=== PATIENT | male | born 1945 | race Caucasian/White ===

== ENCOUNTER → 2022-01-19 13:36 | Outpatient (BNVA) | payer MEDICARE, OTHER, SELFPAY | PROVIDERS: PCP Internal Medicine; Visit Provider Nurse Practitioner Family | DX: G47.33 Obstructive sleep apnea (adult) (pediatric) (principal); G47.31 Primary central sleep apnea; G47.61 Periodic limb movement disorder | CPT/HCPCS: 99212 ==

== ENCOUNTER → 2022-07-20 08:56 | Outpatient (BNVA) | payer MEDICARE, OTHER, SELFPAY | PROVIDERS: PCP Internal Medicine; Visit Provider Nurse Practitioner Family | DX: R51.9 Headache, unspecified (principal); R44.0 Auditory hallucinations; F09 Unspecified mental disorder due to known physiological condition; G25.81 Restless legs syndrome | CPT/HCPCS: 99212 ==

== ENCOUNTER → 2022-09-27 08:45 | Outpatient (BNVA) | payer MEDICARE, OTHER, SELFPAY | PROVIDERS: PCP Internal Medicine; Visit Provider Nurse Practitioner Family | DX: G47.33 Obstructive sleep apnea (adult) (pediatric) (principal); G47.31 Primary central sleep apnea; G47.61 Periodic limb movement disorder; G25.81 Restless legs syndrome; R51.9 Headache, unspecified; I10 Essential (primary) hypertension; F41.8 Other specified anxiety disorders; Z99.89 Dependence on other enabling machines and devices | CPT/HCPCS: 99212 ==

== ENCOUNTER → 2023-04-01 08:57 | Outpatient (BNVA) | payer MEDICARE, OTHER, SELFPAY | PROVIDERS: PCP Internal Medicine; Visit Provider Nurse Practitioner Family | DX: G47.33 Obstructive sleep apnea (adult) (pediatric) (principal); G47.31 Primary central sleep apnea; G47.61 Periodic limb movement disorder; G25.81 Restless legs syndrome; R51.9 Headache, unspecified | CPT/HCPCS: 99212 ==

== ENCOUNTER 2023-12-20 09:46 | Outpatient (AMB) | payer MEDICARE, OTHER, SELFPAY ==
[2023-12-20 10:35] VITALS: BP 136/76; PULSE 46; O2SAT 97; BMI 35.3
--- NOTE | 2023-12-20 10:35 | MHC.OFFVIS ---
Intake Vital Signs 12/20/23 10:35 Height 5 ft 5 in Weight 212 lb BMI 35.3 BP 136/76 Blood Pressure Location Rt brachial Position Sitting Pulse 46 L Pulse Source Pulse Oximeter Pulse Oximetry (%) 97 Oxygen Delivery Method Room Air Intake Visit Reasons: f/u appt-CONF Intake Note: Patient presents for follow up. no issues no cocncerns Allergies No Known Allergies Allergy (Verified 12/20/23 10:37) Medication List - Last Reconciled 12/20/23 by COSTA Bauer acetaminophen ER (Tylenol Arthritis Pain) 1,300 mg PO Q12H PRN atorvastatin 20 mg PO DAILY gabapentin 300 mg PO BEDTIME 90 days gabapentin 100 mg PO DAILY 90 days levothyroxine 25 mcg PO DAILY lorazepam mg PO BID risperidone 1 mg PO QAM sertraline 100 mg PO DAILY trazodone mg PO .QHS PRN HPI HPI Comments History of Present Illness Details yr-old fe/male presents for follow-up visit. Pt denies any significant interval medical history changes. He is usually sleeping well with his CPAP. He typically sleeps 6-7 hrs per night. Goes to bed around 7:30pm- usually sleeps until 3-3:30am. Once he wakes up to void, he usually just starts his day. He is comfortable w/ this bedtime routine. The Gabapentin continues to be helpful for restlessness. Uses 100mg in the am and 300mg at bedtime. He states his headaches are better. The headache feels more like a pressure. Does use Tylenol and Naproxen prn for headache and general aches and pains. Compliance Report Usage 11/20/2023 - 12/19/2023: Usage days days (100%) >= 4 hours Average usage (days used) 6 hours 54 minutes AirSense 11 AutoSet Serial number [id number] Mode CPAP Set pressure 10 cmH2O, EPR level 2 Residual AHI: 1.5/hr PFSH Medical History Anxiety and depression HTN (hypertension) Surgical History H/O total knee replacement Social History Alcohol intake: never Patient Tobacco Use Status: Never used Tobacco Review of Systems Const All systems reviewed & are unremarkable except as noted in HPI and below Physical Exam Vital Signs: Last Vital Signs Pulse 46 L 12/20/23 10:35 BP 136/76 12/20/23 10:35 Pulse Ox 97 12/20/23 10:35 Oxygen Delivery Method Room Air 12/20/23 10:35 BMI result Body Mass Index 35.3 Const General: no acute distress Orientation/consciousness: patient oriented x3 HEENT Head: Yes normocephalic Resp Effort & Inspection: normal respiratory effort and able to speak in complete sentences Auscultation: clear to auscultation bilaterally Neuro General: patient oriented x3 Psych Mental Status: mental status grossly normal Speech and movement: Clear speech present Attitude: cooperative Results Reviewed Results Reviewed: PAP compliance report- see HPI Assessment & Plan Assessment & Plan (1) Obstructive sleep apnea: Code(s): G47.33 - Obstructive sleep apnea (adult) (pediatric) (2) Central sleep apnea: Code(s): G47.31 - Primary central sleep apnea (3) Periodic limb movements of sleep: Code(s): G47.61 - Periodic limb movement disorder (4) Restless leg syndrome: Code(s): G25.81 - Restless legs syndrome Plan Continue Gabapentin 100mg and 300mg qd, may take extra 100mg cap prn pain. Continue CPAP 10 cm H2O nightly greater than 4 hours, as pt has good clinical effect from use.? Clean machine and change CPAP machine and supplies routinely. Monitor headaches- pt declines trying acute headache specific tx at this time. Future considerations- For RLS/PLMS: Pregabalin, dopamine agonist. For headache- Mag and B2, gepant- as pt has mild CAD/HLD f/u in 6 months or sooner prn. Medications: Changed From gabapentin 100 mg PO DAILY 30 days 30 caps 6RF To gabapentin 100 mg PO DAILY 90 caps 1RF 90 days Coding Level of Care Code Est Pt Level 4 (10183) Diagnoses Obstructive sleep apnea G47.33 Central sleep apnea G47.31 Periodic limb movements of sleep G47.61 Restless leg syndrome G25.81
== END 2023-12-20 11:34 | disposition home or self-care (01) ==
PROVIDERS: PCP Internal Medicine; Visit Provider Nurse Practitioner Family
DX: G47.33 Obstructive sleep apnea (adult) (pediatric) (principal); G47.31 Primary central sleep apnea; G47.61 Periodic limb movement disorder; G25.81 Restless legs syndrome
CPT/HCPCS: 99214

== ENCOUNTER → 2023-12-20 09:46 | Outpatient (BNVA) | payer MEDICARE, OTHER, SELFPAY | PROVIDERS: PCP Internal Medicine; Visit Provider Nurse Practitioner Family | DX: G47.33 Obstructive sleep apnea (adult) (pediatric) (principal); G47.31 Primary central sleep apnea; G47.61 Periodic limb movement disorder; G25.81 Restless legs syndrome; Z99.89 Dependence on other enabling machines and devices; Z79.899 Other long term (current) drug therapy | CPT/HCPCS: 99212 ==

== ENCOUNTER 2024-11-12 08:44 | Outpatient (AMB) | payer MEDICARE, OTHER, SELFPAY ==
--- NOTE | 2024-11-12 08:49 | MHC.OFFVIS ---
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 Pt denies any significant interval medical history changes. However, pt woke up today, feeling very dizzy. He states it was a room spinning dizziness, and made him feel off-balanced. He took 2 tabs of OTC meclizine 12.5mg, which helped the dizziness but has caused him to now feel foggy. He has not had a bout of dizziness in a few years. He has been doing debrox for right ear wax occlusion. Denies ear pain, infection, fever. He is usually sleeping well with his CPAP. He typically sleeps 7 hrs per night. He has enough CPAP supplies, and is changing them regularly. He is using distilled water with his machine. The Gabapentin continues to be helpful for restlessness. Uses 100mg in the am and 300mg at bedtime. He states his pressure headaches are stable- not bothersome.. Does use Tylenol and Naproxen prn for headache and general aches and pains. Compliance Report Usage 08/08/2024 - 11/05/2024: Usage days 30/30 days (100%) >= 4 hours Average usage (days used) 7 hours 26 minutes AirSense 11 AutoSet Serial number [id number] Mode CPAP Set pressure 10 cmH2O, EPR level 2 Residual AHI: 2.9/hr PFSH Medical History Anxiety and depression HTN (hypertension) Surgical History H/O total knee replacement Social History Alcohol intake: never Patient Tobacco Use Status: Never used Tobacco Physical Exam Vital Signs: Last Vital Signs Pulse 58 11/12/24 08:53 BP 140/86 H 11/12/24 08:53 Pulse Ox 94 11/12/24 08:53 Oxygen Delivery Method Room Air 11/12/24 08:53 BMI result Body Mass Index 34.9 Const General: no acute distress Orientation/consciousness: patient oriented x3 HEENT Head: Yes normocephalic Resp Effort & Inspection: normal respiratory effort and able to speak in complete sentences Auscultation: clear to auscultation bilaterally Neuro Other: Gaze both nystagmus exam: Intact without nystagmus EOM intact No cervical lymphadenopathy, ear pain on palpation or ear tugging. Posterior oropharynx moist/intact without erythema or exudate. General: patient oriented x3 Psych Mental Status: mental status grossly normal Speech and movement: Clear speech present Attitude: cooperative Assessment & Plan Assessment & Plan (1) Obstructive sleep apnea: Code(s): G47.33 - Obstructive sleep apnea (adult) (pediatric) Category: Medical (2) Central sleep apnea: Code(s): G47.31 - Primary central sleep apnea Category: Medical (3) Periodic limb movements of sleep: Code(s): G47.61 - Periodic limb movement disorder Category: Medical (4) Restless leg syndrome: Code(s): G25.81 - Restless legs syndrome Category: Medical (5) Vertigo: Code(s): R42 - Dizziness and giddiness Category: Medical Plan For acute dizziness: Dizziness has resolved with meclizine 25 mg this morning. No current symptoms of URI or ear infection. May use OTC meclizine 12.5 mg p.r.n.- may be better tolerated than 25 mg that he took today. If dizziness persists or worsens, consider referral for vestibular PT. Continue Gabapentin 100mg and 300mg qd, may take extra 100mg cap prn pain. Continue CPAP 10 cm H2O with EPR to nightly greater than 4 hours, as pt has good clinical effect from use.? Clean machine and change CPAP machine and supplies routinely. Continue to use distilled water in CPAP water reservoir. Monitor headaches. Future considerations- For RLS/PLMS: Pregabalin. For headache- Mag and B2, gepant- as pt has mild CAD/HLD f/u in 6 months or sooner prn. Coding Level of Care Code Est Pt Level 4 (26773) Diagnoses Obstructive sleep apnea G47.33 Central sleep apnea G47.31 Periodic limb movements of sleep G47.61 Restless leg syndrome G25.81 Vertigo R42
[2024-11-12 08:53] VITALS: BP 140/86; PULSE 58; O2SAT 94; BMI 34.9
--- OUTSIDE RECORDS SUMMARY | 2024-11-12 08:55 | XMS_ITS | Encounter Summary ---
Author Organization [facility] Address [address] [place] [address] Care Team Providers Care Script Writer Name Role Phone Unavailable Primary Care Provider Unavailabl e Encounter Details Date Type Department Care Team (Late st Contact Info) Description 02/16/[address] [facility] [address] [place] [address] Adri Putnam, DMD [address] [place] [address] Social History Tobacco Use Types Packs/Day Years Used Date Smoking Tobacco: Former Smokeless Tobacco: Never Social Connections Answer Date Recorded Social Connections and Isolation 0 05/20/2019 Financial Resource Strain Answer Date R ecorded Financial Resource Strain 0 2018 Stress Answer Date Recorded Stress 0 05/20/2019 Physical Activity Answer Date Recorded Physical Activity 0 05/20/2019 Food Insecurity Answer Date Recorded Food 0 05/20/2019 Transportation Needs Answer Date Record ed Transportation 0 05/20/2019 Housing Stability Answer Date Recorded Housing 0 05/20/2019 Safety and Environment Answer Date Deangelo rded Safety 0 05/20/2019 Utilities Answer Date Recorded Utilities 0 05/20/2019 Employment Answer Date Recorded Employment 0 05/20/2019 Sex and Gender Information Value Date Recorded Sex Assigned at Not on file Legal Sex Male 7:59 AM PDT Gender Identity Not on file Sexual Orientation Not on file COVID-19 Exposure Response Date Recorded In the last 10 days, have yo u been in contact with someone who was confirmed or suspected to have Coronavirus/COVID-19? No / Unsure 01/30/2022 9:34 AM EDT documented as of this encounter Plan of Treatment Upcoming Encounters Date Type Department Care Team (Late st Contact Info) Description 11/18/2024 4:20 PM EST Office Visit [facility] [address] [place] [address] Halle Dale DDS [address] [place], [place] [id number] 11/25/2024 9:40 AM EST Office Visit [facility] [address] [place] [address] Jenna Babb [address] [place], [place] [id number] documented as of this encounter Visit Diagnoses Not on filedocumented in this encounter
--- OUTSIDE RECORDS SUMMARY | 2024-11-12 08:55 | XMS_ITS | Clinical Summary ---
Author Organization [facility] Address [address] [place] [address] Care Team Providers Care Workers Compensation Claims Adjuster Name Role Phone Unavailable Primary Care Provider Unavailabl e Source Comments PLEASE NOTE, if this patient is a minor, it may be UNLAWFUL to discuss sensitive information that is contained in these records (such as FAMILY PLANNING, MENTAL HEALTH or SUBSTANCE ABUSE) with the minor patient's parent or other person without the patient's specific authorization.[facility] Allergies No known active allergies Medications ibuprofen (ADVIL,MOTRIN) 800 mg tabletIndicatio ns:Toothache Take 1 Tab by mouth 3 (three) times daily as needed for pain 30 Tab 10/11/2017 Active clindamycin HCl (CLEOCIN) 300 mg capsuleIndicati ons:Tooth infection Take 1 Cap by mouth 3 (three) times daily 28 Cap 09/16/2019 Active amoxicillin (AMOXIL) 500 mg capsule TAKE 4 CAPS 1 HR PRIOR DENTAL APPT 10/22/2022 Active atorvastatin (LIPITOR) 20 mg tablet Take 1 Tablet by mouth 10/26/2022 Active famotidine (PEPCID) 20 mg tablet 05/05/2020 Active LORazepam (ATIVAN) 1 mg tablet Take 1 mg by mouth 04/21/2020 Active levothyroxine 25 mcg tablet Take 25 mcg by mouth once daily 11/18/2022 Active meloxicam (MOBIC) 15 mg tablet Take 15 mg by mouth 02/01/2022 Active gabapentin (NEURONTIN) 300 mg capsule Take 300 mg by mouth 04/28/2020 Active gabapentin (NEURONTIN) 100 mg capsule TAKE 1 CAPSULE BY MOUTH TWICE A DAY FOR 30 DAYS,INST:TA KE 1 CAPSULE AT 11AM AND 3PM 09/30/2022 Active Active Problems No known active problems Encounters Date Type Department Care Team Description 10/28/2024 4:20 PM EST Office Visit [address] [place], [place] [phone] Halle Dale DDS Partial edentulism, unspecified edentulism class (Primary Dx) from Last 3 Months Social History Tobacco Use Types Packs/Day Years Used Date Smoking Tobacco: Former Smokeless Tobacco: Never Social Connections Answer Date Recorded Connectedness 0 06/17/2024 Financial Resource Strain Answer Date R ecorded Financial Resource Strain 0 2018 Stress Answer Date Recorded Stress 0 05/20/2019 Physical Activity Answer Date Recorded Physical Activity 0 05/20/2019 Food Insecurity Answer Date Recorded Food 0 06/25/2024 Transportation Needs Answer Date Record ed Transportation 0 05/20/2019 Housing Stability Answer Date Recorded Housing 0 05/20/2019 Safety and Environment Answer Date Deangelo rded Safety 0 05/20/2019 Utilities Answer Date Recorded Utilities 0 05/20/2019 Employment Answer Date Recorded Stress 0 06/17/2024 Sex and Gender Information Value Date Recorded Sex Assigned at Not on file Legal Sex Male 7:59 AM PDT Gender Identity Not on file Sexual Orientation Not on file Last Filed Vital Signs Vital Sign Reading Time Taken Comments Blood Pressure 155/91 06/06/2024 10:38 AM EDT Pulse 52 06/06/2024 10:38 AM EDT Temperature - - Respiratory Rate - - Oxygen Saturation - - Inhaled Oxygen Concentration - - Weight - - Height - - Body Mass Index - - Plan of Treatment Upcoming Encounters Date Type Department Care Team (Late st Contact Info) Description 11/18/2024 4:20 PM EST Office Visit [address] [place], [place] [phone] Halle Dael DDS [address] [place] [address] 11/25/2024 9:40 AM EST Office Visit [address] [place], [place] [phone] Jenna Babb [address] [place] [address] Health Maintenance Due Date Last Done Comments Dental FMX/Pano 1945 Hepatitis B Screening 1945 Hepatitis C Screening 1945 TSH Monitoring 1945 HIV Screening 1945 Syphilis Screening 10/30/1960 Imm-Hepatitis A (1 of 2 - Ri sk 2-dose series) 1965 Imm-Zoster, Recombinant (1 of 2) 1996 Imm-Hepatitis B (1 of 3 - Ri sk 3-dose series) 2006 Falls Prevention 2011 Imm-DTaP/Tdap/Td (1 - Tdap) 12/10/2023 12/09/2023, 1 10/12/2012 Axp-HCOKC-64 ( season) 2024 12/27/2021, 05/27/2021, 11/06/2020, Additional history exists Imm-Influenza (#1) 2024 06/24/2022, 1 , 06/28/2020, Additional history exists Alcohol and Drug Screen 09/30/2024 Depression Annual Screen 09/30/2024 Tobacco Screening 05/25/2025 05/25/2024 Dental BW 05/27/2025 05/25/2024, 11/01, 12/25/2022 Dental Examination 05/27/2025 05/25/2024, 0 11/25/2023, 12/25/2022 Dental Perio Charting 05/27/2025 05/25/2024 , 11/25/2023, 12/25/2022 Dental Prophy 05/27/2025 05/25/2024, 0202/2024, 12/25/2022 Hypertension Screening (#1) 06/06/2025 Imm-Pneumococcal 65+ Completed 05/01/2021, 04/10/2019, 08/12/2013 Procedures Procedure Name Priority Date/Time Associated Diagnosis Comments CASE PRESENTATION SUBS DTL & EXTENSIVE TX PLN Routine 10/28/2024 4:20 PM EST Partial edentulism, unspecified edentulism class REMOVABLE PARTIAL DENTURE - INITIAL IMPRESSIONS Routine 10/28/2024 4:20 PM EST Partial edentulism, unspecified edentulism class COMP PERIODONTAL EVALUATION - NEW/EST PATIENT Routine 05/25/2024 9:40 AM EDT Caries BITEWINGS - FOUR RADIOGRAPHIC IMAGES Routine 05/25/2024 9:40 AM EDT Caries Full PROPHYLAXIS - ADULT Routine 024 9:40 AM EDT Caries Full PERIODIC ORAL EVALUATION ESTABLISHED PATIENT Routine 05/25/2024 9:40 AM EDT Caries from Last 3 Months or Most Recently Relevant to Health Maintenance Insurance [facility]
--- OUTSIDE RECORDS SUMMARY | 2024-11-12 08:55 | XMS_ITS | Clinical Summary ---
Author Organization [facility] Address [address] [place] [address] Care Team Providers Care Load Builder Name Role Phone Nan Moya MD Primary Care Provider [phone] Allergies No known active allergies Medications Medication Sig Dispensed Refills Start Date End Date Status amoxicillin (AMOXIL) 500 MG tablet Take 4 tabs 1 hour prior to dental appointment, colonoscopy or surgical procedure 20 tablet 3 09/20/2017 Active ibuprofen (ADVIL,MOTRIN) 800 MG tablet Take 800 mg by mouth. 0 10/11/2017 Active amoxicillin (AMOXIL) 500 MG capsule TAKE 4 TABS 1 HOUR PRIOR TO DENTAL APPOINTMENT, COLONOSCOPY OR SURGICAL PROCEDURE 3 10/11/2017 Active enalapril (VASOTEC) 5 MG tablet TAKE 1 TABLET BY MOUTH EVERY DAY 0 08/08/2017 Active gabapentin (NEURONTIN) 300 MG capsule Take 300 mg by mouth 2 (two) times a day. 6 09/11/2017 Active gemfibrozil (LOPID) 600 MG tablet 1 TABLET BY MOUTH 2 TIMES A DAY,X90 DAYS 3 10/02/2017 Active LORazepam (ATIVAN) 1 MG tablet TAKE 1 TABLET BY MOUTH 3 TIMES A DAY 2 10/11/2017 Active prazosin (MINIPRESS) 1 MG capsule Take 1 mg by mouth every night at bedtime. 0 07/17/2017 Active risperiDONE (RISPERDAL) 1 MG tablet Take 1 mg by mouth every morning. as directed 6 10/06/2017 Active sertraline (ZOLOFT) 100 MG tablet TAKE 1 TABLET BY MOUTH ONCE A DAY DEPRESSION 2 10/06/2017 Active omeprazole (PRILOSEC) 20 MG capsule Take 20 mg by mouth 2 (two) times a day. 1 01/17/2018 Active lisinopril (PRINIVIL,ZESTRIL) tablet 5 mg Take 5 mg by mouth daily. 3 10/17/2018 Active Active Problems Problem Noted Date Diagnosed Date Lumbar back pain with radicu lopathy affecting left lower extremity 12/17/2018 Social History Tobacco Use Types Packs/Day Years Used Date Smoking Tobacco: Never Assessed Sex and Gender Information Value Date Recorded Sex Assigned at Not on file Gender Identity Not on file Sexual Orientation Not on file Last Filed Vital Signs Vital Sign Reading Time Taken Comments Blood Pressure - - Pulse - - Temperature - - Respiratory Rate - - Oxygen Saturation - - Inhaled Oxygen Concentration - - Weight - - Height 167.6 cm (5' 6 ) 12/17/2018 2:54 PM EDT Body Mass Index - - Plan of Treatment Health Maintenance Due Date Last Done Comments Hepatitis C Screening 1945 COVID-19 Vaccine (#1) 04[birth year]28/1946 Depression Screening 1958 Preventative Health Evaluation 1964 DTap / Tdap / Td (1 - Tdap) 1965 Shingrix-Zoster Vaccine (1 of 2) 1996 Fall Risk Assessment 2011 Pneumococcal Vaccine (1 of 1 - PCV) 2011 RSV Adult > 60+ Yrs or Pregn ant (1 - 1-dose 75+ series) 2021 Influenza Vaccine (#1) 2024 Hepatitis B Vaccines Aged Out No long er eligible based on patient's age to complete this topic RSV Ped < 20 months Aged Out No longe r eligible based on patient's age to complete this topic Care Teams Load Builder Relationship Specialty Start Date End Date Nan Moya MD [address] [place] [address] PCP - General Internal Medicine 10/21/17
--- OUTSIDE RECORDS SUMMARY | 2024-11-12 08:55 | XMS_ITS | Clinical Summary ---
Author Organization [facility], Address [address] [address] Phone Care Team Providers Care Skin Therapist Name Role Phone Nan Moya MD Primary Care Provider [phone] Medications famotidine (PEPCID) 20 MG tablet 0 Active gabapentin (NEURONTIN) 100 MG capsule 0 Active gabapentin (NEURONTIN) 300 MG capsule Take 300 mg by mouth at bed time 0 Active gemfibrozil (LOPID) 600 MG tablet Take 600 mg by mouth as directed 0 Active levothyroxine (SYNTHROID, LEVOTHROID) 25 MCG tablet 0 Active LORazepam (ATIVAN) 1 MG tablet Take 1 mg by mouth 0 Active prednisoLONE acetate (PRED FORTE) 1 % ophthalmic suspension INSTILL 1 DROP INTO LEFT EYE EVERY 2 HOURS (8 TIMES PER DAY) 0 Active risperiDONE (RisperDAL) 1 MG tablet TAKE 1 TABLET BY MOUTH EVERY DAY IN THE MORNING DIRECTED 0 Active sertraline (ZOLOFT) 100 MG tablet Take 100 mg by mouth 1 (one) time each day for depression. 0 Active fluocinonide (LIDEX) 0.05 % cream 1 APPLICATION TWICE A DAY TO SCALP 0 Active predniSONE (DELTASONE) 10 MG tablet TAKE 4 TABLETS BY MOUTH ONCE DAILY 120 tablet 1 1 Active ketorolac (ACULAR) 0.5 % ophthalmic solution INSTILL 1 DROP INTO THE OPERATIVE EYE STARTING 2 DAYS PRIOR TO SURGERY, TAPER DIRECTED 1 Active ketoconazole (NIZORAL) 2 % cream 1 Active halobetasol (ULTRAVATE) 0.05 % cream 1 Active Active Problems Problem Noted Date Diagnosed Date Stage 3b chronic kidney disease 05/12/2020 Overview (10/03/2020): Update for Diagnosis Load Acute tubulointerstitial nephritis 05/12/2020 Benign prostatic hyperplasia 05/12/2020 Hypothyroidism 05/12/2020 Metabolic acidosis 05/12/2020 Essential (primary) hypertension 05/12/2020 Resolved Problems Problem Noted Date Diagnosed Date Resolved Date Lumbar radiculopathy 12/17/2018 020 Social History Tobacco Use Types Packs/Day Years Used Date Smoking Tobacco: Former Cigarettes 1 965 - 1968 Pipe Cigars Smokeless Tobacco: Never Alcohol Use Standard Drinks/Week Comments Not Currently 0 (1 standard drink = 0.6 oz pur e alcohol) Sex and Gender Information Value Date Recorded Sex Assigned at Male 06/11/2020 6:19 AM EDT Legal Sex Male 2:45 PM EDT Gender Identity Male 06/11/2020 6:19 AM EDT Sexual Orientation Choose not to disclose 2019 6:19 AM EDT Plan of Treatment Health Maintenance Due Date Last Done Comments Influenza Vaccine (#1) 2024 0, 06/28/2020 Pneumococcal Vaccine: 65+ Years Completed 05/01/2021, 04/10/2019, 08/12/2013 Hepatitis B Vaccine Aged Out No longe r eligible based on patient's age to complete this topic Insurance [address] [place] [address] MEDICARE MEDICAID [place] [facility] [place] [address] [place] [address] Care Teams Skin Therapist Relationship Specialty Start Date End Date Nan Moya MD [facility] [place], [place] PCP - General Internal Medicine 05/06/20
--- OUTSIDE RECORDS SUMMARY | 2024-11-12 08:55 | XMS_ITS | Encounter Summary ---
Author Organization [facility] Address [address] [place] [address] Care Team Providers Care Senior Sas Programmer Name Role Phone Unavailable Primary Care Provider Unavailabl e Encounter Details Date Type Department Care Team (Late st Contact Info) Description 10/28/2024 4:20 PM EST Office Visit [facility] [address] [place] [phone] Halle Dale DDS [address] [place] [address] Partial edentulism, unspecified edentulism class (Primary Dx) Social History Tobacco Use Types Packs/Day Years [...] on file Sexual Orientation Not on file documented as of this encounter Progress Notes * Halle Dale DDS - 10/28/2024 4:27 PM EST Dental Removable - Impressions SUBJECTIVE: Matt Sullivan, 78 year old male, presents alone for Maxillary Resin RPD Final Impressions. Heel Cover Softener: No No chief complaint on file. OBJECTIVE: RMHx: Yes Vitals: There were no vitals filed for this visit. ASSESSMENT: Dx: K08.409 Partial edentulism, unspecified edentulism class (primary encounter diagnosis) Dx Details (Clinical Decision-Making): patient came with a broken maxillary partial denture, brokenbase of the maxllary denture , impression taken maxillary and mandibular jaw, lower impression was a picking supervisor impression, lower denture return to the patient. Inform patient we will see if lab can repair the maxillary denture. PLAN: Informed Consent/PARQ (Procedure, Alternatives, Risks, Questions): Patient confirms informed consent using PARQ. Dental procedures in this visit [id number] - REMOVABLE PARTIAL DENTURE - INITIAL IMPRESSIONS (Completed) Service provider: Halle Dale DDS Billing provider: Halle Dale DDS [id number] - CASE PRESENTATION SUBS DTL & EXTENSIVE TX PLN (Completed) Service provider: Halle Dale DDS Billing provider: Halle Dale DDS Impressions taken with Alginate. Border molding completed with N/A Post-Op Information Given: verbal Referral: No orders of the following type(s) were placed in this encounter: Referral. Rx: No orders of the defined types were placed in this encounter. Behavior: Compliant DA: yudy NV: Treatment - Denture Visit delivery documented in this encounter Miscellaneous Notes * Patient Instructions - Halle Dale DDS - 10/28/2024 4:30 PM EST If you are not able to keep your appointment please call 24-48 hours before your appointment to cancel or reschedule. documented in this encounter Plan of Treatment Upcoming Encounters Date Type Department Care Team ([facility] st Contact Info) Description 11/18/2024 4:20 PM EST Office Visit [facility] [address] [place] [address] Halle Dale DDS [address] [place] [address] 11/25/2024 9:40 AM EST Office Visit [facility] [address] [place] [phone] Jenna Babb [address] [place] [address] documented as of this encounter Procedures Procedure Name Priority Date/Time Associated Diagnosis Comments REMOVABLE PARTIAL DENTURE - INITIAL IMPRESSIONS Routine 10/28/2024 4:20 PM EST Partial edentulism, unspecified edentulism class CASE PRESENTATION SUBS DTL & EXTENSIVE TX PLN Routine 10/28/2024 4:20 PM EST Partial edentulism, unspecified edentulism class documented in this encounter Visit Diagnoses Diagnosis Partial edentulism, unspecified edentulism class- Primary documented in this encounter
--- OUTSIDE RECORDS SUMMARY | 2024-11-12 08:55 | XMS_ITS | Clinical Summary ---
Author Organization [facility] Address [address] [place] [address] Care Team Providers Care Linen Manager Name Role Phone Nan Moya MD Primary Care Provider [phone] Surgical History Surgery Date Site/Laterality Comments JOINT REPLACEMENT PROCEDURE:JOINT REPLACEMENT SHOULDER SURGERY PROCEDURE:SHOULDER SURGERY Medical History Medical History Date Comments PTSD (post-traumatic stress disorder) DX:PTSD (post-traumatic stress disorder) Arthritis DX:Arthritis High blood pressure DX:High bloo d pressure Diverticulitis DX:Diverticuliti s Social History Tobacco Use Types Packs/Day Years Used Date Smoking Tobacco: Never Assessed Sex and Gender Information Value Date Recorded Sex Assigned at Not on file Legal Sex Male 11:47 AM EST Gender Identity Not on file Sexual Orientation Not on file Obstetrics History Plan of Treatment Health Maintenance Due Date Last Done Comments DTaP,Tdap,and Td Vaccines (1 - Tdap) 1965 Pneumococcal Vaccine: 50+ Ye ars (1 of 1 - PCV) 1996 Zoster Vaccines (1 of 2) 1996 RSV Immunization Patients 60 + Years Old (1 - 1-dose 75+ series) 2021 Cholesterol Screening (Lipid Panel) 08/28/2022 Depression Screening 08/28/2022 Falls Risk Assessment 08/28/2022 Hepatitis C Screening 08/28/2022 Social Influencers of Health Screening 08/28/2022 COVID-19 Vaccine ( - 2023-2 5 season) 2024 Influenza Vaccine (#1) 2024 HIB Vaccines Aged Out No longer eligi ble based on patient's age to complete this topic HPV Vaccines Aged Out No longer eligi ble based on patient's age to complete this topic Hepatitis A Vaccines Aged Out No long er eligible based on patient's age to complete this topic Hepatitis B Vaccines Aged Out No long er eligible based on patient's age to complete this topic IPV Vaccines Aged Out No longer eligi ble based on patient's age to complete this topic MMR Vaccines Aged Out No longer eligi ble based on patient's age to complete this topic Meningococcal ACWY Vaccine Aged Out N o longer eligible based on patient's age to complete this topic Meningococcal B Vacine Aged Out No lo nger eligible based on patient's age to complete this topic RSV Immunization Patients Un sandor 20 months Aged Out No longer eligible b ased on patient's age to complete this topic Varicella Vaccines Aged Out No longer eligible based on patient's age to complete this topic Advance Directives Documents on File Type Date Recorded 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 Health Care Decision (hx) 05/14/2016 AD PYLE DIRECTIVE Health Care Decision (hx) 05/14/2016 AD PYEL DIRECTIVE Health Care Decision (hx) 05/14/2016 AD PYLE DIRECTIVE Health Care Decision (hx) 05/14/2016 AD PYLE DIRECTIVE Health Care Decision (hx) 03/14/2015 AD YPLE DIRECTIVE Health Care Decision (hx) 03/14/2015 AD PYLE DIRECTIVE Health Care Decision (hx) 03/14/2015 AD PYLE DIRECTIVE Health Care Decision (hx) 03/14/2015 AD PYLE DIRECTIVE Health Care Decision (hx) 12/10/2014 AD PYLE DIRECTIVE Health Care Decision (hx) 12/10/2014 AD PYLE DIRECTIVE Health Care Decision (hx) 12/10/2014 AD PYLE DIRECTIVE Health Care Decision (hx) 12/10/2014 AD PYLE DIRECTIVE Health Care Decision (hx) 12/16/2012 AD PYLE DIRECTIVE Health Care Decision (hx) 12/16/2012 AD PYLE DIRECTIVE Health Care Decision (hx) 12/16/2012 AD PYLE DIRECTIVE Health Care Decision (hx) 12/16/2012 AD PYLE DIRECTIVE Care Teams Linen Manager Relationship Specialty Start Date End Date Nan Moya MD [address] [place] [address] PCP - General Internal Medicine 10/21/17
== END 2024-11-12 09:39 | disposition home or self-care (01) ==
PROVIDERS: PCP Internal Medicine; Visit Provider Nurse Practitioner Family
DX: G47.33 Obstructive sleep apnea (adult) (pediatric) (principal); G47.31 Primary central sleep apnea; G47.61 Periodic limb movement disorder; G25.81 Restless legs syndrome; R42 Dizziness and giddiness
CPT/HCPCS: 99214

== ENCOUNTER → 2024-11-12 08:44 | Outpatient (BNVA) | payer MEDICARE, OTHER, SELFPAY | PROVIDERS: PCP Internal Medicine; Visit Provider Nurse Practitioner Family | DX: G47.33 Obstructive sleep apnea (adult) (pediatric) (principal); G47.31 Primary central sleep apnea; G47.61 Periodic limb movement disorder; G25.81 Restless legs syndrome; R42 Dizziness and giddiness | CPT/HCPCS: 99212 ==

== ENCOUNTER 2025-05-13 08:43 | Outpatient (AMB) | payer MEDICARE, OTHER, SELFPAY ==
--- OUTSIDE RECORDS SUMMARY | 2025-05-13 09:06 | XMS_ITS | Clinical Summary ---
Author Organization [facility] Address [address] [place] [address] Care Team Providers Care Back Line Cook Name Role Phone Nan Moya MD Primary Care Provider [phone] Surgical History Surgery Date Site/Laterality Comments JOINT [...] Vaccines (1 of 2) 1996 RSV Immunization Adult Patie nts (1 - 1-dose 75+ series) 2021 Cholesterol Screening (Lipid Panel) 08/28/2022 Falls Risk Assessment 08/28/2022 Hepatitis C Screening 08/28/2022 Social Influencers of Health Screening 08/28/2022 COVID-19 Vaccine (1 - 2023-2 5 season) 2024 Depression Screening 09/30/2024 Influenza Vaccine (#1) 2025 HIB Vaccines Aged Out No longer eligi [...] age to complete this topic Meningococcal B Vaccine Aged Out No l onger eligible based on patient's age to complete this topic RSV Immunization Patients Un sandor 20 months Aged Out No longer eligible b ased on patient's age to complete this topic Varicella Vaccines Aged Out No longer eligible based on patient's age to complete this topic Advance Directives Documents on File Type Date Recorded Patient Mate Ship Expl anation Health Care Decision (hx) 05/14/2016 [...] (hx) 12/16/2012 AD PYLE DIRECTIVE Care Teams Back Line Cook Relationship Specialty Start Date End Date Nan Moya MD [address] [place] [address] PCP - General Internal Medicine 10/21/17
--- OUTSIDE RECORDS SUMMARY | 2025-05-13 09:06 | XMS_ITS | Patient Health Record ---
Author [facility] Address [address] [place] [address] Care Team Providers Care International Broadcast Music Librarian Name Role Phone Nan Moya MD Primary Care Provider UnavailTim Hutchinson Unavailable [phone] Reason For Referral No Information Medications Medication SIG (Take, Route, Frequency, Duration) Notes Start Date End Date Status metroNIDAZOLE 500 MG TAKE 1 TABLET BY MO UTH THREE TIMES DAILY Oral; Duration: 7 Unknown Ciprofloxacin HCl 500 MG TAKE 1 TABLET B Y MOUTH TWICE DAILY UNTIL FINISHED Oral; Duration: 7 Unknown Betamethasone Scalp once every thr ee days 06/27/2017 Active risperiDONE 1 MG TAKE 1 TABLET BY NATASHA TH EVERY MORNING DIRECTED Oral; Duration: 30 Active LORazepam 1 MG (Schedule IV Drug) T CALEB 1 TABLET BY MOUTH THREE TIMES DAILY Oral; Duration: 30 Active Tamsulosin HCl 0.4 MG TAKE 1 CAPSULE BY MOUTH EVERY DAY Oral; Duration: 30 Not-Taking Sertraline HCl 100 MG TAKE 1 TABLET BY M OUTH ONCE A DAY FOR DEPRESSION Oral; Duration: 30 Active Fenofibrate 145 MG 1 tablet Orally Once a day 06/27/2017 Active Enalapril Maleate 5 MG TAKE 1 TABLET BY MOUTH EVERY DAY Oral; Duration: 90 Active Gabapentin 300 MG TAKE ONE CAPSULE BY MOUTH TWICE A DAY Oral; Duration: 30 Active Flonase 50 MCG/ACT 1 spray in each nost ril Nasally Once a day 06/27/2017 Active traMADol HCl 50 MG (Schedule IV Drug) T CALEB 1 TABLET BY MOUTH EVERY SIX HOURS NEEDED FOR PAIN Oral; Duration: 4 Unknown Social History Tobacco Use: Social History Observation Description Date Details (start date - stop date) Former Smoker NA - NA Tobacco Use/Smoking Question Answer Notes Are you a: former smoker When did you start smoking? 26 years When did you stop smoking? 30 years ago Additional Findings: Tobacco User Heavy cigarett e smoker (20-39 cigs/day) Additional Findings: Tobacco Non-User Ex-heavy c igarette smoker (20-30/day) Alcohol Screen Question Answer Notes Did you have a drink containing alcohol in the p ast year? No Points 0 Interpretation Negative Tobacco use other than smoking: Question Answer Notes Are you an other tobacco user? No Plan Of Treatment No Information Insurance Providers Payer Name Payer Address Payer Phone Subscriber Number Group Number Insured Name Patient Relationship to Insured Coverage Start Date Coverage End Date Medicare National [employer] [address] [place] [address] [id number] Matt Sullivan Self - patient is the insured [address] [facility] [address] [place] [phone] [id number] Matt Sullivan Self - patient is the insured Medical (General) History Medical History History ICD Code Arthritis Back,Hip,and Knee pain - Left Diverticulosis Hypertension Psoriasis/eczema Measles Mumps Chicken pox Joint implants/screws Surgical History Surgery Date(Month/Year) left knee replacement 2014
--- OUTSIDE RECORDS SUMMARY | 2025-05-13 09:06 | XMS_ITS | Clinical Summary ---
Author Organization [facility] Address [address] [place] [address] Care Team Providers Care Industrial Hygenist Name Role Phone Unavailable Primary Care Provider [...] CAPSULE AT 11AM AND 3PM 09/30/2022 Active amoxicillin (AMOXIL) 500 mg capsuleIndicati ons:Prophylacti c antibiotic Take 1 Capsule by mouth Once PRN for other reason (premed/prop hylaxis) for up to 1 dose Take 4 tablets 30 min to 1 hour before the dental liliana 16 Capsule 01/27/2025 Active Active Problems No known active problems Encounters Date Type Department Care Team Description 05/03/2025 3:00 PM EDT Office Visit [facility] [address] [place] [phone] Mane Bird DMD 02/23/2025 10:20 AM EDT Office Visit [address] [phone] Halle Dale DDS from Last 3 Months Social History Tobacco [...] Sign Reading Time Taken Comments Blood Pressure 176/95 02/23/2025 10:16 AM EDT Pulse 53 02/23/2025 10:16 AM EDT Temperature - - Respiratory Rate - - Oxygen Saturation - - Inhaled Oxygen Concentration - - Weight - - Height - - Body Mass Index - - Plan of Treatment Upcoming Encounters Date Type Department Care Team (Late st Contact Info) Description 05/27/2025 9:40 AM EDT Office Visit [address] [phone] Jenna Babb [address] [place] [phone] 06/08/2025 1:00 PM EDT Office Visit [facility] [address] [place] [address] Mane Bird, SHAVON [address] [place] [address] Health Maintenance Due Date Last Done Comments Dental FMX/Pano 1946 Hepatitis B Screening 1946 Hepatitis C Screening 1946 TSH Monitoring 1946 HIV Screening 1946 Syphilis Screening 10/30/1960 Imm-Hepatitis A (1 of 2 - Ri sk 2-dose series) 1965 Imm-Zoster, Recombinant (1 of 2) 1996 Imm-Hepatitis B (1 of 3 - Ri sk 3-dose series) 2006 Falls Prevention 2011 Imm-RSV (adult) (1 - 1-dose 75+ series) 2021 Imm-DTaP/Tdap/Td (1 - Tdap) 12/10/2023 12/09/2023, 1 10/12/2012 Alcohol and Drug Screen 09/30/2024 Depression Annual Screen 09/30/2024 [id number] ( season) 2024 06/18/2024, 07/09/2023, 12/27/2021, Additional history exists Dental Perio Charting 05/27/2025 05/25/2024 , 11/25/2023, 12/25/2022 Imm-Influenza (#1) 2025 06/18/2024, 1 , 06/24/2022, Additional history exists Dental BW 11/27/2025 11/25/2024, 05/01, 11/25/2023, Additional history exists Dental Examination 11/27/2025 11/25/2024, 0 05/25/2024, 11/25/2023, Additional history exists Dental Prophy 11/27/2025 11/25/2024, 05/01, 11/25/2023, Additional history exists Tobacco Screening 01/29/2026 01/29/2025 Hypertension Screening (#1) 02/23/2026 Imm-Pneumococcal 50+ Completed 05/01/2021, 04/10/2019, 08/12/2013 Procedures Procedure Name Priority Date/Time Associated Diagnosis Comments LIMITED ORAL EVALUATION - PROBLEM FOCUSED Routine 05/03/2025 3:00 PM EDT Fractured dental scientology with loss of material 21 B RESIN-BASED COMPOSITE - ONE SURFACE POSTERIOR Routine 02/23/2025 10:20 AM EDT Caries CASE PRESENTATION SUBS DTL & EXTENSIVE TX PLN Routine 02/23/2025 10:20 AM EDT Caries BITEWINGS - FOUR RADIOGRAPHIC IMAGES Routine 11/25/2024 9:40 AM EST Caries PROPHYLAXIS - ADULT Routine 11/25/2024 9 :40 AM EST Caries PERIODIC ORAL EVALUATION ESTABLISHED PATIENT Routine 11/25/2024 9:40 AM EST Caries COMP PERIODONTAL EVALUATION - NEW/EST PATIENT Routine 05/25/2024 9:40 AM EDT Caries from Last 3 Months or Most Recently Relevant to Health Maintenance Insurance [facility]
--- OUTSIDE RECORDS SUMMARY | 2025-05-13 09:06 | XMS_ITS | Clinical Summary ---
Author Organization [facility] Address [address] [place] [address] Care Team Providers Care Manager Materials Management Name Role Phone Nan Moya MD Primary Care Provider [phone] Allergies No known active allergies Medications Medication [...] 1-dose 75+ series) 2021 Influenza Vaccine (#1) 2025 Hepatitis B Vaccines Aged Out No long er eligible based on patient's age to complete this topic RSV Ped < 20 months Aged Out No longe r eligible based on patient's age to complete this topic Care Teams Manager Materials Management Relationship Specialty Start Date End Date Nan Moya MD [address] [place] [address] PCP - General Internal Medicine 10/21/17
--- OUTSIDE RECORDS SUMMARY | 2025-05-13 09:06 | XMS_ITS | Clinical Summary ---
Author Organization [facility], Address [address] [place] [address] Phone Care Team Providers Care Nursing Home Physician Name Role Phone Nan Moya MD Primary Care Provider [phone] Medications famotidine (PEPCID) 20 MG tablet 0 [...] Smoking Tobacco: Former Cigarettes 1 965 - 1217 Pipe Cigars Smokeless Tobacco: Never Alcohol Use [...] Date Last Done Comments Influenza Vaccine (#1) 2025 0, 06/28/2020 Pneumococcal Vaccine: 50+ Years Completed 05/01/2021, 04/10/2019, 08/12/2013 Pneumococcal Vaccine: Peds (0 to 5 Years) and At-Risk Patients (6 to 49 Years) Discontinued 05/01/2021, 04/10/2019, 08/12/2013 Hepatitis B Vaccine Aged Out No longe r eligible based on patient's age to complete this topic Insurance [address] [place] [address] Medicare Medicaid [place] [facility] [place] [address] [place] [address] Care Teams Nursing Home Physician Relationship Specialty Start Date End Date Nan Moya MD [facility] [place], [place] PCP - General Internal Medicine 05/06/20
[2025-05-13 09:27] VITALS: BP 130/80; PULSE 54; O2SAT 95; BMI 35.3
--- NOTE | 2025-05-13 09:27 | A.OFFVIS_ITS ---
Vital Signs 05/13/25 09:27 Height 5 ft 5 in Weight 212 lb BMI 35.3 BP 130/80 Blood Pressure Location Rt brachial Position Sitting Pulse 54 Pulse Source Pulse Oximeter Pulse Oximetry (%) 95 Oxygen Delivery Method Room Air Intake Visit Reasons: 6mon follow-up Radiological Defense Officer Required: No Accompanied by: Self / Same As Patient Allergies No Known Allergies Allergy (Verified 05/13/25 09:31) Medication List - Last Reconciled 05/13/25 by COSTA Bauer acetaminophen ER (Tylenol Arthritis Pain) 1,300 mg PO Q12H PRN atorvastatin 20 mg PO DAILY gabapentin 100 mg PO DAILY 90 days gabapentin 300 mg PO BEDTIME 90 days levothyroxine 25 mcg PO DAILY lorazepam mg PO BID metoprolol succinate ER 50 mg PO DAILY metoprolol succinate ER 25 mg PO DAILY risperidone 1 mg PO QAM sertraline 100 mg PO DAILY trazodone mg PO .QHS PRN HPI Comments Details: 79-yr-old fe/male presents for follow-up visit. Pt denies any significant interval medical history changes. He states occasionally he will feel dizzy/vertigo, where he sits up, and then just falls over onto the bed, and the dizziness lasts about 15-20 minutes,a nd self-resolves. Not needing to take the meclizine any longer, as it was not helpful. He is usually sleeping well with his CPAP. He typically sleeps at least 7 hrs per night. He states he may recall his dreams more- often about a stressful interaction- not bothersome to pt- as she states he realizes that it was just a dream. He has enough CPAP supplies, and is changing them regularly. He is using distilled water with his machine. The Gabapentin continues to be helpful for restlessness. Uses 100mg in the am and 300mg at bedtime. He states when he is sleeping, strange things happen, like he will hear something dragging something across the floor. He feels that this happens when they do not like his sleeping position, and want him to change his sleeping position. He states that when he talks it is weird stuff . For instance, he states they must have shot lasers at his knees, as they must have wanted him not to run for some reason. they worked hard to establish a mental health history on him. He is not currently seeing a psychiatrist. He states his right alevism pressure headaches and the left just pain frontal temporal pain are stable- not bothersome. States for the last 5-6 years, he just feels that the left side of his head/mouth does not feel pain. Does use Tylenol and Naproxen prn for headache and general aches and pains. Compliance Report Usage 08/08/2024 - 11/05/2024: AirSense 11 AutoSet Serial number [id number] Overall usage 100% Usage > 4 hours days 100% Average usage (days used) 7 hours 33 minutes Mode CPAP Set pressure 10 cmH2O, EPR level 2 Residual AHI: 3.3/hr PFSH Medical History Anxiety and depression HTN (hypertension) Surgical History H/O total knee replacement Social History Alcohol intake: never Patient Tobacco Use Status: Never used Tobacco Physical Exam Vital Signs: Last Vital Signs Pulse 54 05/13/25 09:27 BP 130/80 05/13/25 09:27 Pulse Ox 95 05/13/25 09:27 Oxygen Delivery Method Room Air 05/13/25 09:27 BMI result Body Mass Index 35.3 Const General: no acute distress Orientation/consciousness: patient oriented x3 HEENT Head: Yes normocephalic Resp Effort & Inspection: normal respiratory effort and able to speak in complete sentences Auscultation: clear to auscultation bilaterally Neuro General: patient oriented x3 Psych Mental Status: mental status grossly normal Speech and movement: Clear speech present Attitude: cooperative Assessment & Plan Assessment & Plan (1) Obstructive sleep apnea: Code(s): G47.33 - Obstructive sleep apnea (adult) (pediatric) Category: Medical (2) Central sleep apnea: Code(s): G47.31 - Primary central sleep apnea Category: Medical (3) Periodic limb movements of sleep: Code(s): G47.61 - Periodic limb movement disorder Category: Medical (4) Restless leg syndrome: Code(s): G25.81 - Restless legs syndrome Category: Medical (5) Vertigo: Code(s): R42 - Dizziness and giddiness Category: Medical Plan For dizziness: Dizziness improved. Pt has stopped OTC meclizine 12.5 mg p.r.n. If dizziness persists or worsens, consider referral for vestibular PT. For ANTHONY: Continue CPAP 10 cm H2O with EPR to nightly greater than 4 hours, as pt has good clinical effect from use.? * Clean machine and change CPAP machine and supplies routinely. * Continue to use distilled water in CPAP water reservoir. For PLMS/RLS: * Continue Gabapentin 100mg and 300mg qd, may take extra 100mg cap prn pain. For headaches: * May use Tyleonl or Ibuprofen prn. * Continue to monitor headaches. Future considerations- For RLS/PLMS: Pregabalin. For headache- Mag and B2, gepant- as pt has mild CAD/HLD f/u in 12 months or sooner prn. Medications: Refilled gabapentin 100 mg PO DAILY 90 caps 1RF 90 days gabapentin 300 mg PO BEDTIME 90 caps 1RF 90 days Coding Level of Care Code Est Pt Level 4 (56073) Diagnoses Obstructive sleep apnea G47.33 Central sleep apnea G47.31 Periodic limb movements of sleep G47.61 Restless leg syndrome G25.81 Vertigo R42
== END 2025-05-13 10:16 | disposition home or self-care (01) ==
LOC: HO.HSMS 08:49
PROVIDERS: PCP Internal Medicine; Visit Provider Nurse Practitioner Family
DX: G47.33 Obstructive sleep apnea (adult) (pediatric) (principal); G47.31 Primary central sleep apnea; G47.61 Periodic limb movement disorder; G25.81 Restless legs syndrome; R42 Dizziness and giddiness
CPT/HCPCS: 99214

== ENCOUNTER → 2025-05-13 08:43 | Outpatient (BNVA) | payer MEDICARE, OTHER, SELFPAY | PROVIDERS: PCP Internal Medicine; Visit Provider Nurse Practitioner Family | DX: G47.33 Obstructive sleep apnea (adult) (pediatric) (principal); G47.31 Primary central sleep apnea; G47.61 Periodic limb movement disorder; G25.81 Restless legs syndrome; R42 Dizziness and giddiness; Z99.89 Dependence on other enabling machines and devices; Z79.899 Other long term (current) drug therapy | CPT/HCPCS: 99212 ==